=== PATIENT | male | born 1980 | race Caucasian/White ===

== ENCOUNTER 2018-01-26 14:06 | Emergency (ER) | payer OTHER ==
[2018-01-26] MEDS ORDERED: IBUPROFEN 600 MG TAB PO ONE (14:46)
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
[2018-01-26] MEDS ORDERED: DEXAMETHASONE 4 MG TAB PO ONE (16:35)
[2018-01-26] MEDS ORDERED: HYDROCODONE/APAP 5/325 TAB PO ONE (17:24)
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
[2018-01-26 19:38] VITALS: BP 149/93
== END 2018-01-26 19:36 | disposition home or self-care (01) ==
DX: S12.500A Unspecified displaced fracture of sixth cervical vertebra, initial encounter for closed fracture (principal); M50.222 Other cervical disc displacement at C5-C6 level; V18.0XXA Pedal cycle driver injured in noncollision transport accident in nontraffic accident, initial encounter; Y93.55 Activity, bike riding; Y99.8 Other external cause status

== ENCOUNTER → 2018-02-08 | Outpatient (CLI) | payer OTHER | LOC: FIMAGING 09:21 | PROVIDERS: ATTEND Physician Assistant | DX: S12.500D Unspecified displaced fracture of sixth cervical vertebra, subsequent encounter for fracture with routine healing (principal); M50.222 Other cervical disc displacement at C5-C6 level ==